=== PATIENT | male | born 1970 | race Caucasian/White ===

== ENCOUNTER 2017-03-25 18:46 | Emergency (ER) | payer OTHER ==
[~2017-03-25] VITALS: Ht 182.9 cm; Wt 83.9 kg
[2017-03-25] MEDS ORDERED: IV NORMAL SALINE 1000 ML BAG IV ONE (19:15)
[2017-03-25] MEDS ORDERED: MORPHINE SULFATE 2 MG/1 ML DISP.SYRIN IV ONE (19:15)
[2017-03-25] MEDS ORDERED: ONDANSETRON 4 MG/2 ML VIAL IV ONE (19:15)
[2017-03-25] MEDS ORDERED: CLID1CAP PO (19:16)
[2017-03-25] MEDS ORDERED: HYOS0.1273 PO (19:16)
[2017-03-25] MEDS ORDERED: CIPR500T5 PO (19:16)
[2017-03-25] MEDS ORDERED: METR250T PO (19:16)
[2017-03-25 19:37] LABS: BASOPHILS % (AUTO) 0.3 % (0.0-2.0); EOSINOPHILS % (AUTO) 0.3 % (0.0-7.0); HEMATOCRIT 43.1 % (36.7-47.1); HEMOGLOBIN 14.9 g/dL (12.5-16.3); LYMPHOCYTES # (AUTO) 2.2 K/uL (20.0-40.0); LYMPHOCYTES % (AUTO) 14.1 % (20.5-51.5); MEAN CORPUSCULAR HEMOGLOBIN 30.2 uug (23.8-33.4); MEAN CORPUSCULAR HGB CONC 35 g/dL (32.5-36.3); MEAN CORPUSCULAR VOLUME 87.2 fL (73.0-96.2); MONOCYTES # (AUTO) 0.9 K/uL (2.0-10.0); MONOCYTES % (AUTO) 5.5 % (0.0-11.0); NEUTROPHILS # (AUTO) 12.6 K/uL (1.8-8.9); NEUTROPHILS % (AUTO) 79.8 % (38.5-71.5); PLATELET COUNT (AUTO) 100 K/uL (152-348); RED BLOOD CELL COUNT(AUTO) 4.94 MIL/uL (4.06-5.63); WHITE BLOOD COUNT (AUTO) 15.7 K/uL (3.6-10.2)
[2017-03-25 19:40] LABS: CREATININE 1.3 mg/dL (0.6-1.3); POTASSIUM 3.6 mmol/L (3.5-5.1)
[2017-03-25] MEDS ORDERED: MORPHINE SULFATE 2 MG/1 ML DISP.SYRIN ONE (19:42)
[2017-03-25] MEDS ORDERED: ONDANSETRON 4 MG/2 ML VIAL ONE (19:42)
--- NOTE | 2017-03-25 19:43 | NUR ---
Transported to CT scan
[2017-03-25 19:46] LABS: BILIRUBIN,DIRECT 0.3 mg/dL (0.0-0.2)
[2017-03-25] MEDS ORDERED: diphenhydrAMINE 50 MG/1 ML VIAL IV ONE (20:15)
[2017-03-25] MEDS ORDERED: diphenhydrAMINE 50 MG/1 ML VIAL ONE (20:31)
--- NOTE | 2017-03-25 21:25 | NUR ---
Pt stable for discharge per Dr. Pagan. IV dc'd, catheter intact. Drsg applied. No problems noted to site. Pt given ACI. Pt verbalized understanding of dc instructions. Pt ambulated out of er with steady gait to to wait for ride home.
[2017-03-25 21:26] VITALS: BP 97/58
== END 2017-03-25 21:27 | disposition home or self-care (01) ==
LOC: ER 18:46
DX: K52.9 Noninfective gastroenteritis and colitis, unspecified (principal); K57.30 Diverticulosis of large intestine without perforation or abscess without bleeding
CPT/HCPCS: 74176; 80048; 80076; 83690; 85025; 96361; 96374; 96375; 99285; A4663; J1200; J2270; J2405; J7030; 36415

== ENCOUNTER 2017-04-17 00:02 | Inpatient (IN) | payer OTHER ==
[~2017-04-17] VITALS: Ht 180.3 cm; Wt 76.7 kg
[~2017-04-17 00:02] MED LIST: CIPR500T5 PO; CLID1CAP PO; HYOS0.1273 PO; METR250T PO
--- NOTE | 2017-04-17 00:18 | NUR ---
PT PRESENTS W/ C/O ABD PAIN R/T DIVERTICULITIS. DENIES TAKING ANY MEDS FOR PAIN, BUT REPORTS BEING ON HIGH DOSE OF ANTIBIOTICS. SYMPTOMS PERSISTENT X3 WEEKS
--- NOTE | 2017-04-17 00:26 | NUR ---
PT REPORTS 1 EPISODE OF EMISIS TO RN. UPON GI EVAL, NO EMISIS PRESENT IN BASIN
--- NOTE | 2017-04-17 00:42 | NUR ---
AMBULATED TO RESTROOM W/ STABLE GAIT. NO SIGNS/SYMPTOMS OF ABD PAIN NOTED W/ AMBULATION. WILL CONTINUE TO MONITOR.
[2017-04-17] MEDS ORDERED: IV NORMAL SALINE 1000 ML BAG IV ONE (01:45)
[2017-04-17] MEDS ORDERED: HYDROMORPHONE 1 MG/1 ML DISP.SYRIN IV ONE (01:45)
[2017-04-17] MEDS ORDERED: ONDANSETRON 4 MG/2 ML VIAL IV ONE (01:45)
[2017-04-17 01:56] LABS: *BILIRUBIN,URIN 1+ (NEGATIVE); *BLOOD, URINE 3+ (NEGATIVE); *CLARITY,URINE CLEAR (CLEAR); *COLOR,URINE YELLOW (YELLOW); *KETONES,URINE 3+ (NEGATIVE); *PROTEIN,URINE 1+ (NEGATIVE); *UROBILINOGEN,URINE 0.2 E.U./dl (NORMAL); LEUKOCYTE ESTERASE ,URINE NEGATIVE (NEGATIVE); NITRITE, URINE NEGATIVE (NEGATIVE); UGLUCOSE NEGATIVE (NEGATIVE)
[2017-04-17 02:11] LABS: BASOPHILS # (AUTO) 0.1 K/uL (0.0-8.0); BASOPHILS % (AUTO) 0.8 % (0.0-2.0); EOSINOPHILS % (AUTO) 0.3 % (0.0-7.0); HEMOGLOBIN 14.8 g/dL (12.5-16.3); LYMPHOCYTES # (AUTO) 1.2 K/uL (20.0-40.0); LYMPHOCYTES % (AUTO) 12.1 % (20.5-51.5); MEAN CORPUSCULAR HEMOGLOBIN 30.4 uug (23.8-33.4); MEAN CORPUSCULAR HGB CONC 35 g/dL (32.5-36.3); MEAN CORPUSCULAR VOLUME 86.2 fL (73.0-96.2); MONOCYTES # (AUTO) 0.5 K/uL (2.0-10.0); MONOCYTES % (AUTO) 4.8 % (0.0-11.0); NEUTROPHILS # (AUTO) 8.4 K/uL (1.8-8.9); PLATELET COUNT (AUTO) 154 K/uL (152-348); RED BLOOD CELL COUNT(AUTO) 4.87 MIL/uL (4.06-5.63); WHITE BLOOD COUNT (AUTO) 10.2 K/uL (3.6-10.2)
[2017-04-17 02:17] LABS: BACTERIA,URINE NONE SEEN /HPF (NONE SEEN); CALCIUM OXALATE CRYSTALS,UR MODERATE /HPF (NONE SEEN); SQUAMOUS EPITHELIAL CELL,UR FEW /HPF (NONE SEEN)
[2017-04-17] MEDS ORDERED: HYDROMORPHONE 1 MG/1 ML DISP.SYRIN ONE (02:25)
[2017-04-17] MEDS ORDERED: ONDANSETRON 4 MG/2 ML VIAL ONE (02:25)
[2017-04-17 02:26] LABS: BILIRUBIN,DIRECT 0.1 mg/dL (0.0-0.2); BILIRUBIN,TOTAL 0.4 mg/dL (0.2-1.0); CREATININE 1.4 mg/dL (0.6-1.3); POTASSIUM 3.2 mmol/L (3.5-5.1); TOTAL PROTEIN, SERUM 3.7 g/dL (6.4-8.2)
--- NOTE | 2017-04-17 02:45 | NUR ---
Call placed to [facility], Dr. Worley will be paged.
--- NOTE | 2017-04-17 03:04 | NUR ---
LOWELL FARRELL SPEAKING W/ DR HEATH
--- NOTE | 2017-04-17 03:14 | NUR ---
PT RESTING IN A POSITION OF COMFORT W/ EYES CLOSED. NO ACUTE SIGNS OF DISTRESS NOTED.
[2017-04-17] MEDS ORDERED: POTASSIUM CHLORIDE 20 MEQ TAB.PRT.SR PO ONE (03:15)
[2017-04-17] MEDS ORDERED: HYDROCODONE/APAP 5-325MG TABLET PO PRN (03:15)
[2017-04-17] MEDS ORDERED: MORPHINE SULFATE 2 MG/1 ML DISP.SYRIN IV PRN (03:15)
[2017-04-17] MEDS ORDERED: ACETAMINOPHEN 325 MG TABLET PO PRN (03:15)
[2017-04-17] MEDS ORDERED: ONDANSETRON 4 MG/2 ML VIAL IV PRN (03:15)
[2017-04-17] MEDS ORDERED: Z GUARD REMEDY PASTE 57 GM TUBE TOP PRN (03:15)
[2017-04-17] MEDS ORDERED: MAGNESIUM HYDROXIDE 30 ML LIQUID UDC PO PRN (03:15)
[2017-04-17] MEDS: LEVOFLOXACIN 500 MG/D5W 500 MG in PREMIXED 1 EACH IV SCH (03:26)
[2017-04-17] MEDS ORDERED: LEVOFLOXACIN 500 MG/D5W 100 ML ONE (03:39)
[2017-04-17] MEDS ORDERED: POTASSIUM CHLORIDE 20 MEQ TAB.PRT.SR ONE (03:58)
--- NOTE | 2017-04-17 04:48 | NUR ---
PT RESTING IN A POSITION OF COMFORT W/ EYES CLOSED. NO ACUTE SIGNS OF DISTRESS NOTED
[2017-04-17] MEDS ORDERED: KETOROLAC TROMETHAMINE 30 MG INJ IVP ONE (05:30)
[2017-04-17] MEDS ORDERED: KETOROLAC TROMETHAMINE 30 MG INJ ONE (05:44)
--- NOTE | 2017-04-17 05:52 | NUR ---
PT RESTING IN A POSITION OF COMFORT W/ EYES CLOSED. NO ACUTE SIGNS OF DISTRESS NOTED
--- NOTE | 2017-04-17 06:54 | NUR ---
Patient in bed, no c/o pain at this time. No acute distress. Respirations even and unlabored. Will continue to monitor. Call light is within reach. Pending bed assignment for impatient admission.
--- NOTE | 2017-04-17 07:10 | NUR ---
Patient awaiting inpatient admission, awaiting for bed availability at this time. Patient in bed, stable, no acute distress noted.
--- NOTE | 2017-04-17 07:18 | NUR ---
REPORT GIVEN TO LISSETTE CHAVEZ. PT RESTING IN BED, NO ACUTE DISTRESS.
[2017-04-17] MEDS: METRONIDAZOLE 500 MG/NS 100ML 500 MG in PREMIXED 1 EACH IV SCH ×3 (08:02→22:05)
[2017-04-17] MEDS: IV NS 1000 ML 1,000 ML IV PRN ×2 (08:07→17:30)
[2017-04-17] MEDS ORDERED: METRONIDAZOLE 500 MG/NS 100ML 100 ML IV ONE (08:17)
--- NOTE | 2017-04-17 08:46 | NUR ---
REPORT GIVEN TO [facility]. PT TRANSFERED TO ROOM #101A.
[2017-04-17] MEDS: PANTOPRAZOLE SODIUM 40 MG VIAL IV SCH (08:47)
[2017-04-17] MEDS ORDERED: PANTOPRAZOLE SODIUM 40 MG VIAL ONE (09:09)
--- NOTE | 2017-04-17 09:30 | NUR ---
Received patient from the ER Nurse, patient is awake, alert and oriented x4, denies any form of pain at this time, with ongoing IV of Normal Saline infusing well at 75ml/hr, IV site noted on the left antecubital arm, no signs and symptoms of infiltration at this time, pertinent assessments done, lung sounds are clear, bowel sounds audible on four quadrants, upper and lower extremities within normal limits, no signs and no symptom of acute distress. Needs attended promptly, call light within easy reach, will continue to monitor.
[2017-04-17 10:00] VITALS: BP 112/74
[2017-04-17] MEDS: MORPHINE SULFATE 4 MG/1 ML DISP.SYRIN IV PRN ×2 (17:53→22:11)
[2017-04-17 19:33] VITALS: BP 118/79
--- NOTE | 2017-04-17 19:40 | NUR ---
Received patient in bed, awake and alert. vital signs taken and recorded. no acute distress noted. complained of abdominal pain. explained to the patient he just had her morphine inj. will provide non pharmacological interventions. with on going IV of PNSS @ 75cc/hr, infusing well on left AC. call chaudhry within reach. will monitor patient.
--- NOTE | 2017-04-17 23:05 | NUR ---
instructed pt. on NPO post midnight for his CT scan procedure with contract tomorrow AM.
[2017-04-18] MEDS: MORPHINE SULFATE 4 MG/1 ML DISP.SYRIN IV PRN ×4 (03:07→22:02)
[2017-04-18] MEDS: LEVOFLOXACIN 500 MG/D5W 500 MG in PREMIXED 1 EACH IV SCH (03:07)
[2017-04-18] MEDS: METRONIDAZOLE 500 MG/NS 100ML 500 MG in PREMIXED 1 EACH IV SCH ×3 (05:54→22:01)
[2017-04-18] MEDS ORDERED: BARIUM SULFATE 450 ML ORAL.SUSP ONE (07:17)
[2017-04-18] MEDS ORDERED: IV NORMAL SALINE 250 ML IV ONE (07:17)
[2017-04-18] MEDS ORDERED: IOHEXOL 300MG/ML 100 ML INFUS..BTL ONE (07:17)
[2017-04-18 08:40] VITALS: BP 114/77
[2017-04-18 08:50] LABS: BASOPHILS # (AUTO) 0.1 K/uL (0.0-8.0); BASOPHILS % (AUTO) 0.8 % (0.0-2.0); EOSINOPHILS # (AUTO) 0.2 K/uL (0.0-0.7); EOSINOPHILS % (AUTO) 1.9 % (0.0-7.0); HEMATOCRIT 39.6 % (36.7-47.1); HEMOGLOBIN 13.7 g/dL (12.5-16.3); LYMPHOCYTES # (AUTO) 1.7 K/uL (20.0-40.0); LYMPHOCYTES % (AUTO) 21.1 % (20.5-51.5); MEAN CORPUSCULAR HEMOGLOBIN 30.2 uug (23.8-33.4); MEAN CORPUSCULAR HGB CONC 35 g/dL (32.5-36.3); MEAN CORPUSCULAR VOLUME 87.3 fL (73.0-96.2); MONOCYTES # (AUTO) 0.9 K/uL (2.0-10.0); MONOCYTES % (AUTO) 10.6 % (0.0-11.0); NEUTROPHILS # (AUTO) 5.4 K/uL (1.8-8.9); NEUTROPHILS % (AUTO) 65.6 % (38.5-71.5); PLATELET COUNT (AUTO) 123 K/uL (152-348); RED BLOOD CELL COUNT(AUTO) 4.53 MIL/uL (4.06-5.63); WHITE BLOOD COUNT (AUTO) 8.2 K/uL (3.6-10.2)
[2017-04-18] MEDS: PANTOPRAZOLE SODIUM 40 MG VIAL IV SCH (08:59)
[2017-04-18 09:21] LABS: BILIRUBIN,TOTAL 0.3 mg/dL (0.2-1.0); CREATININE 1.5 mg/dL (0.6-1.3); MAGNESIUM 1.5 mg/dL (1.8-2.4); PHOSPHOROUS 3.4 mg/dL (2.5-4.9); POTASSIUM 3.8 mmol/L (3.5-5.1); TOTAL PROTEIN, SERUM 5.9 g/dL (6.4-8.2)
[2017-04-18] MEDS: IV NS 1000 ML 1,000 ML IV PRN (12:51)
[2017-04-18] MEDS ORDERED: MAGNESIUM OXIDE 400 MG TABLET PO ONE (15:45)
--- NOTE | 2017-04-18 18:00 | NUR ---
Patient was stable all throughout the shift, he had a procedure abdominal CT scan with contrast, he tolerated the procedure well, was NPO before the procedure. He was given IV pain management as needed per MDs order. IV site on his left antecubital arm, patent and intactm, has no signs and symptoms of infiltration noted. Patient is ambulatory, safety provided. Call light in easy reach, was seen and examined by Dr. Layne with new orders noted and carried out.
--- NOTE | 2017-04-18 19:33 | NUR ---
Received patient in bed, awake alert and on semi wise's position. vital signs taken and recorded. no acute distress noted. complained of abdominal pain /. with on going IV of PNSS @ 75cc/hr, infusing well on left AC.Updated patient regarding new order of UROLOGY consult. call chaudhry within reach. will monitor patient.
[2017-04-18 20:15] VITALS: BP 108/74
[2017-04-19] MEDS: LEVOFLOXACIN 500 MG/D5W 500 MG in PREMIXED 1 EACH IV SCH (03:30)
[2017-04-19] MEDS: MORPHINE SULFATE 4 MG/1 ML DISP.SYRIN IV PRN ×5 (03:43→22:02)
[2017-04-19 04:00] VITALS: BP 112/68
[2017-04-19] MEDS: IV NS 1000 ML 1,000 ML IV PRN ×2 (06:12→22:05)
[2017-04-19] MEDS: METRONIDAZOLE 500 MG/NS 100ML 500 MG in PREMIXED 1 EACH IV SCH ×3 (06:13→21:10)
[2017-04-19] MEDS: PANTOPRAZOLE SODIUM 40 MG VIAL IV SCH (08:27)
[2017-04-19 08:42] VITALS: BP 107/73
[2017-04-19 21:06] VITALS: BP 110/68
--- NOTE | 2017-04-19 21:30 | NUR ---
resting in bed. aaox4 OOB to the BR. Voiding well. No acute distress noted. IV infiltrated. #24g heplock inserted via left arm, flushed and patent. On antibiotic therapy, tolerated well. No ill effects noted. Pain meds given as needed. Will monitor patient. Needs attended. Kept comfortable.
[2017-04-20] MEDS: LEVOFLOXACIN 500 MG/D5W 500 MG in PREMIXED 1 EACH IV SCH (03:06)
[2017-04-20] MEDS: METRONIDAZOLE 500 MG/NS 100ML 500 MG in PREMIXED 1 EACH IV SCH ×2 (05:21→14:53)
--- NOTE | 2017-04-20 05:36 | NUR ---
SLEPT MOST OF THE SHIFT. NO ACUTE DISTRESS NOTED. NEEDS ATTENDED. MEDICATED WITH MORPHINE 2MG IV GIVEN FOR PAIN. VOIDING WELL. BM NOTED THIS SHIFT. ANTIBIOTICS IN PROGRESS. NO SIDE EFFECTS NOTED.
[2017-04-20 09:19] VITALS: BP 111/75
[2017-04-20 09:29] LABS: BASOPHILS # (AUTO) 0.1 K/uL (0.0-8.0); BASOPHILS % (AUTO) 1.1 % (0.0-2.0); EOSINOPHILS # (AUTO) 0.3 K/uL (0.0-0.7); EOSINOPHILS % (AUTO) 4.9 % (0.0-7.0); HEMATOCRIT 39.7 % (36.7-47.1); HEMOGLOBIN 13.7 g/dL (12.5-16.3); LYMPHOCYTES # (AUTO) 1.6 K/uL (20.0-40.0); LYMPHOCYTES % (AUTO) 25.1 % (20.5-51.5); MEAN CORPUSCULAR HEMOGLOBIN 30.1 uug (23.8-33.4); MEAN CORPUSCULAR HGB CONC 35 g/dL (32.5-36.3); MEAN CORPUSCULAR VOLUME 87.1 fL (73.0-96.2); MONOCYTES # (AUTO) 0.4 K/uL (2.0-10.0); MONOCYTES % (AUTO) 7.1 % (0.0-11.0); NEUTROPHILS # (AUTO) 3.8 K/uL (1.8-8.9); NEUTROPHILS % (AUTO) 61.8 % (38.5-71.5); PLATELET COUNT (AUTO) 130 K/uL (152-348); RED BLOOD CELL COUNT(AUTO) 4.56 MIL/uL (4.06-5.63); WHITE BLOOD COUNT (AUTO) 6.2 K/uL (3.6-10.2)
[2017-04-20] MEDS: PANTOPRAZOLE SODIUM 40 MG VIAL IV SCH (09:31)
[2017-04-20 09:36] LABS: MAGNESIUM 1.6 mg/dL (1.8-2.4); PHOSPHOROUS 3.4 mg/dL (2.5-4.9); POTASSIUM 3.9 mmol/L (3.5-5.1)
[2017-04-20] MEDS ORDERED: MAGNESIUM OXIDE 400 MG TABLET PO ONE (15:15)
[2017-04-20] MEDS ORDERED: METR500T PO (15:30)
[2017-04-20] MEDS ORDERED: LEVO500T2 PO (15:30)
[2017-04-20] MEDS ORDERED: HYDR-3326 PO (15:30)
== END 2017-04-20 17:40 | disposition home or self-care (01) | DRG 391 ==
LOC: ER 00:13 → MEDSURG1 09:07
PROVIDERS: ADMIT Internal Medicine; ATTEND Internal Medicine
DX: K57.32 Diverticulitis of large intestine without perforation or abscess without bleeding (principal); N17.0 Acute kidney failure with tubular necrosis; N13.2 Hydronephrosis with renal and ureteral calculous obstruction; B96.89 Other specified bacterial agents as the cause of diseases classified elsewhere; N20.0 Calculus of kidney; E87.6 Hypokalemia; R16.1 Splenomegaly, not elsewhere classified; K40.90 Unilateral inguinal hernia, without obstruction or gangrene, not specified as recurrent; K42.9 Umbilical hernia without obstruction or gangrene; K76.0 Fatty (change of) liver, not elsewhere classified; R31.29 Other microscopic hematuria; K52.3 Indeterminate colitis
CPT/HCPCS: 36415; 70030-TC; 83605; 83690; 83735; 84100; 85025; 86140; 87040; 93005; A4663; C9113; J1170; J1885; J1956; J2270; J2405; J3490; J7030; J7050; Q9951; Q9967